=== PATIENT | male | born 1985 | race Caucasian/White ===

== ENCOUNTER 2017-11-04 11:29 | Emergency (ER) | payer OTHER ==
[~2017-11-04] VITALS: Ht 175.3 cm; Wt 100.2 kg
[2017-11-04 11:39] VITALS: BP 162/87; Ht 175.3 cm; Wt 100.2 kg
== END 2017-11-04 12:20 | disposition home or self-care (01) ==
LOC: ED 11:29
DX: K64.9 Unspecified hemorrhoids (principal); I10 Essential (primary) hypertension

== ENCOUNTER 2018-05-03 08:22 | Emergency (ER) | payer OTHER ==
[~2018-05-03] VITALS: Ht 175.3 cm; Wt 95.7 kg
[2018-05-03 08:28] VITALS: BP 150/99; Ht 175.3 cm; Wt 95.7 kg
== END 2018-05-03 08:59 | disposition home or self-care (01) ==
LOC: ED 08:22
DX: J03.90 Acute tonsillitis, unspecified (principal); F41.9 Anxiety disorder, unspecified; I10 Essential (primary) hypertension; F17.210 Nicotine dependence, cigarettes, uncomplicated

== ENCOUNTER 2019-10-21 08:41 | Emergency (ER) | payer OTHER ==
[~2019-10-21] VITALS: Ht 175.3 cm; Wt 89.8 kg
[2019-10-21 08:59] VITALS: Ht 175.3 cm; Wt 89.8 kg
[2019-10-21 09:15] VITALS: BP 123/80
== END 2019-10-21 09:15 | disposition home or self-care (01) ==
LOC: ED 08:41
DX: J03.90 Acute tonsillitis, unspecified (principal); I10 Essential (primary) hypertension

== ENCOUNTER 2019-11-24 22:56 | Emergency (ER) | payer OTHER ==
[~2019-11-24] VITALS: Ht 175.3 cm; Wt 97.5 kg
[2019-11-24 23:04] VITALS: Ht 175.3 cm; Wt 97.5 kg
[2019-11-24 23:50] VITALS: BP 154/91
== END 2019-11-24 23:50 | disposition home or self-care (01) ==
LOC: ED 22:56
DX: R53.1 Weakness (principal); I10 Essential (primary) hypertension

== ENCOUNTER 2019-11-28 10:25 | Emergency (ER) | payer OTHER ==
[~2019-11-28] VITALS: Ht 175.3 cm; Wt 96.6 kg
[2019-11-28 10:31] VITALS: BP 124/78; Ht 175.3 cm; Wt 96.6 kg
== END 2019-11-28 13:20 | disposition home or self-care (01) ==
LOC: ED 10:25
DX: K12.1 Other forms of stomatitis (principal); Z87.09 Personal history of other diseases of the respiratory system

== ENCOUNTER 2020-01-26 11:58 | Emergency (ER) | payer OTHER ==
[~2020-01-26] VITALS: Ht 175.3 cm; Wt 99.3 kg
[2020-01-26 12:11] VITALS: Ht 175.3 cm; Wt 99.3 kg
[2020-01-26 12:57] VITALS: BP 144/79
== END 2020-01-26 12:57 | disposition home or self-care (01) ==
LOC: ED 11:58
DX: H61.21 Impacted cerumen, right ear (principal); I10 Essential (primary) hypertension

== ENCOUNTER 2020-02-16 09:24 | Emergency (ER) | payer OTHER ==
[~2020-02-16] VITALS: Ht 175.3 cm; Wt 96.2 kg
[2020-02-16 09:34] VITALS: Ht 175.3 cm; Wt 96.2 kg
[2020-02-16 10:16] LABS: microscopic required? NO
[2020-02-16 10:30] VITALS: BP 146/90
[2020-02-16 11:10] LABS: UA SPECIFIC GRAVITY 1.015 (1.005-1.035); urine erythrocyte NEGATIVE (NEGATIVE)
[2020-02-18 06:09] LABS: RAPID PLASMA REAGIN Reactive (Non Reactive)
== END 2020-02-16 10:30 | disposition home or self-care (01) ==
LOC: ED 09:24
PROVIDERS: Emergency Medicine
DX: A64 Unspecified sexually transmitted disease (principal)
CPT/HCPCS: 87491; 87591; J0696